=== PATIENT | male | born 1935 | race Caucasian/White ===

== ENCOUNTER → 2019-07-02 | Outpatient (CLI) | payer MEDICARE ==
[~2019-07-02] MED LIST: AMLO10TA7 PO; FINA5TAB41 PO; LATA7.5D OP; TERA1CAP4 PO
== END | disposition home or self-care (01) ==
LOC: RAH 08:24
PROVIDERS: ATTEND Internal Medicine Critical Care Medicine
DX: I71.9 Aortic aneurysm of unspecified site, without rupture (principal); K76.0 Fatty (change of) liver, not elsewhere classified; N28.1 Cyst of kidney, acquired; N28.89 Other specified disorders of kidney and ureter; N13.30 Unspecified hydronephrosis
CPT/HCPCS: 76700